=== PATIENT | male | born 1990 | race Two or more races ===

== ENCOUNTER 2018-10-10 11:55 | Emergency (ER) | payer OTHER ==
[2018-10-10 12:02] VITALS: BP 118/55; PULSE 77; TEMP 98.2; BMI 31.9
[2018-10-10] MEDS ORDERED: IBUPROFEN 400 MG TABLET (FP) PO ONE ×2 (12:33→12:39)
--- NOTE | 2018-10-10 12:39 | PDOC ---
History of Present Illness - General Chief Complaint: Injury Stated Complaint: RT HAND INJURY Time Seen by Provider: 10/10/18 12:03 History Source: Patient Exam Limitations: Clinical Condition - History of Present Illness Initial Comments: 10/10/18 12:41 Patient with no significant past medical history present with complaint of swelling and pain to back of right hand status post trip while going down staircase and falling on outstretched hand about 6 hours ago. Patient denies hitting head or loss of consciousness. Patient did not take anything for pain. Occurred: reports: this morning Past History - Past Medical History Allergies/Adverse Reactions: Allergies Allergy/AdvReac Type Severity Reaction Status Date / Time No Known Drug Allergies Allergy Verified 10/10/18 12:40 seafood Allergy Swelling Uncoded 10/10/18 12:01 Home Medications: Ambulatory Orders Oxycodone HCl/Acetaminophen [Percocet 5/325 -] 1 tab PO Q6H PRN #4 tablet Penicillin V Potassium [Pen Vee K -] 500 mg PO QID #28 tablet 04/28/15 Ibuprofen 800 mg PO Q8H PRN #20 tablet 10/10/18 COPD: No - Suicide/Smoking/Psychosocial Hx Smoking Status: No Smoking History: Never smoked Have you smoked in the past 12 months: Yes Number of Cigarettes Smoked Daily: 3 Information on smoking cessation initiated: No Hx Alcohol Use: No Drug/Substance Use Hx: No Substance Use Type: Alcohol Trauma Specific PMHX - Complaint Specific PMHX Arthritis: No Back Injury: No Neck Injury: No Hx Sacro Iliac Joint Dysfunction: No Review of Systems - Review of Systems Able to Perform ROS?: Yes Is the patient limited Sinhala proficient: No Constitutional: No: Weakness HEENTM: No: Symptoms Reported Respiratory: No: Symptoms reported Cardiac (ROS): No: Symptoms Reported ABD/GI: No: Symptoms Reported Musculoskeletal: Yes: Symptoms Reported, See HPI, Joint Swelling (right hand), Muscle Pain (right hand). No: Muscle Weakness Neurological: No: Numbness, Paresthesia, Tingling All Other Systems: Reviewed and Negative *Physical Exam - Vital Signs Last Vital Signs Temp Pulse Resp BP Pulse Ox 98.2 F 77 17 118/55 L 100 10/10/18 12:00 10/10/18 12:00 10/10/18 12:00 10/10/18 12:00 10/10/18 12:00 - Physical Exam Comments: 10/10/18 12:45 GENERAL: Well developed, well nourished. Awake and alert in moderate acute distress. CARDIOVASCULAR: Regular rate and rhythm. No murmurs, rubs, or gallops. PULMONARY: No evidence of respiratory distress. MUSCULOSKELETAL : moderate tenderness to dorsal aspect of right hand over third to fifth metatarsals with moderate swelling to dorsal aspect of right hand. No open wound to right hand. No pain to fingers, forearm or elbow.No bony deformities SKIN: Warm and dry. Normal capillary refill. No bruising or ecchymosis. Moderate swelling to dorsal aspect of right hand. NEUROLOGICAL: Alert, awake, appropriate. No motor deficits in the lower extremities. Gait is normal without ataxia. PSYCHIATRIC: Cooperative. Good eye contact. Appropriate mood and affect. General Appearance: Yes: Nourished, Appropriately Dressed, Apparent Distress, Moderate Distress Procedures - Splinting Splint Location: Right: Hand (ulnar gutter) Pre-Proc Neuro Vasc Exam: normal Pre-Made Type: aircast Hand-Made Type: orthoglass Splint Type: Yes: Ulnar (ulnar gutter splint to right hand) Post-Proc Neuro Vasc Exam: normal Darío Bandage: 4" Sling: Yes Complications: No Post splint xray: No Good repositioning: Yes ED Treatment Course - RADIOLOGY Radiology Studies Ordered: Category Date Time Status WRIST W/HAND-RIGHT* [RAD] Stat Radiology 10/10/18 12:04 Ordered Medical Decision Making - Medical Decision Making 10/10/18 12:42 Patient with no significant past medical history present with complaint of swelling and pain to back of right hand status post trip while going down staircase and falling on outstretched hand about 6 hours ago. Patient denies hitting head or loss of consciousness. Patient did not take anything for pain. Exam significant for moderate tenderness to dorsal aspect of right hand over third to fifth metatarsals with moderate swelling to dorsal aspect of right hand. No open wound to right hand. No pain to fingers, forearm or elbow. X-ray of right hand and wrist shows dorsally displaced fracture to shaft of 5th metatarsal of right hand. Patient placed in ulnar gutter splint in flexion. Sling given to support hand. Motrin 800 mg by mouth ordered for pain. Patient referred to follow-up with orthopedics for follow-up management of hand fracture. *DC/Admit/Observation/Transfer Diagnosis at time of Disposition: Closed right hand fracture Qualifiers: Encounter type: initial encounter Qualified Code(s): S62.91XA - Unspecified fracture of right wrist and hand, initial encounter for closed fracture Boxers fracture Qualifiers: Encounter type: initial encounter Fracture type: closed Qualified Code(s): S62.339A - Displaced fracture of neck of unspecified metacarpal bone, initial encounter for closed fracture - Discharge Dispostion Disposition: HOME Condition at time of disposition: Stable Decision to Admit order: No - Prescriptions Prescriptions: Ibuprofen 800 mg PO Q8H PRN #20 tablet PRN Reason: pain - Referrals Referrals: Efrain Huitron MD [Staff Physician] - - Patient Instructions Printed Discharge Instructions: DI for a Hand Fracture, Hand Fracture Additional Instructions: Take prescribed medication as needed for pain. Keep splint on hand until orthopedist follow-up. Follow-up referred orthopedics as soon as possible. - Post Discharge Activity Forms/Work/School Notes: Back to Work
== END 2018-10-10 12:48 | disposition home or self-care (01) ==
LOC: JERFT 11:55
PROC: 2W3CX1Z Immobilization of Right Lower Arm using Splint (ICD-10-PCS; principal; 2018-10-10)
DX: S62.326A Displaced fracture of shaft of fifth metacarpal bone, right hand, initial encounter for closed fracture (principal); W10.8XXA Fall (on) (from) other stairs and steps, initial encounter; Y93.89 Activity, other specified; Y92.89 Other specified places as the place of occurrence of the external cause; Y99.8 Other external cause status
CPT/HCPCS: 29126; 73110-TC-RT-FY; 73130-TC-RT-FY; 99281-25

== ENCOUNTER 2019-12-15 20:27 | Emergency (ER) | payer OTHER ==
[2019-12-15 20:31] VITALS: BP 129/85; PULSE 64; TEMP 97.3; BMI 29.8
[2019-12-15] MEDS ORDERED: LIDOCAINE PATCH REMOVAL MC SCH (22:00)
[2019-12-15] MEDS ORDERED: ALBUTEROL SO4 2.5/IPRATROPIUM 0.5 INH SOL 3 ML VIAL.NEB. NEB ONE ×2 (22:01→22:13)
[2019-12-15] MEDS ORDERED: DEXAMETHASONE LIQUID 0.5 MG/5 ML PO ONE (22:01)
[2019-12-15] MEDS ORDERED: LIDOCAINE 5% TOPICAL PATCH TP ONE (22:09)
[2019-12-15] MEDS ORDERED: LIDOCAINE 5% TOPICAL PATCH ONE (22:13)
[2019-12-15] MEDS ORDERED: DEXAMETHASONE SOD PHOSPHATE 10 MG/1 ML VIAL ONE (22:13)
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
== END 2019-12-15 22:54 | disposition home or self-care (01) ==
LOC: JER 20:27
PROC: 3E0F7GC Introduction of Other Therapeutic Substance into Respiratory Tract, Via Natural or Artificial Opening (ICD-10-PCS; principal; 2019-12-15)
DX: J45.909 Unspecified asthma, uncomplicated (principal); R07.89 Other chest pain
CPT/HCPCS: 99284-25

== ENCOUNTER 2022-04-02 22:49 | Emergency (ER) | payer OTHER ==
[2022-04-02 23:02] VITALS: BP 148/79; PULSE 81; RESP 19; TEMP 98.6; BMI 29.7
[2022-04-03] MEDS ORDERED: MAG HYDROX/AL HYDROX/SIMETH 30 ML UNIT-DOSE CUP PO ONE (00:05)
[2022-04-03] MEDS ORDERED: ONDANSETRON 4 MG/2 ML VIAL IVPUSH ONE ×2 (00:05→00:37)
[2022-04-03] MEDS ORDERED: SODIUM CHLORIDE 2,585 ML IV ONE (00:06)
[2022-04-03] MEDS ORDERED: FAMOTIDINE 20 MG/50 ML IVPB 20 MG/50 ML MG IVPB ONE ×2 (00:12→00:38)
[2022-04-03] MEDS ORDERED: ACETAMINOPHEN 1000 MG/100 ML BAG IVPB ONE (00:12)
[2022-04-03] MEDS ORDERED: SODIUM CHLORIDE 0.9% 500 ML INFUS.BAG IV ONE (00:12)
[2022-04-03] MEDS ORDERED: MAG HYDROX/AL HYDROX/SIMETH 30 ML UNIT-DOSE CUP ONE (00:34)
[2022-04-03] MEDS ORDERED: ONDANSETRON 4 MG/2 ML VIAL ONE (00:36)
[2022-04-03 01:23] LABS: BLOOD UREA NITROGEN 12.8 mg/dL (7-18); CALCIUM 9.5 mg/dL (8.5-10.1)
[2022-04-03 01:26] LABS: CREATININE 1.1 mg/dL (0.55-1.3)
[2022-04-03 01:28] LABS: BILIRUBIN,TOTAL 0.4 mg/dL (0.2-1); TOT PROT 7.2 g/dl (6.4-8.2)
== END 2022-04-03 02:34 | disposition home or self-care (01) ==
LOC: JER 22:49
PROC: 3E033GC Introduction of Other Therapeutic Substance into Peripheral Vein, Percutaneous Approach (ICD-10-PCS; principal; 2022-04-02)
DX: R10.10 Upper abdominal pain, unspecified (principal); R11.2 Nausea with vomiting, unspecified
CPT/HCPCS: 36415; 80053; 83690; 99284-25

== ENCOUNTER 2023-12-11 15:48 | Emergency (ER) | payer OTHER ==
[2023-12-11 15:59] VITALS: BMI 27.3
[2023-12-11] MEDS ORDERED: TETRACAINE 0.5% OPHTH SOLN 2 ML BOTTLE ONE (17:55)
[2023-12-11] MEDS: TETRACAINE 0.5% HCL 0.6ML DROPPER.BOTTLE OS ONE (18:03)
[2023-12-11] MEDS ORDERED: ACETAMINOPHEN 325 MG TABLET (FP) ONE (18:36)
[2023-12-11] MEDS ORDERED: DEXAMETHASONE SOD PHOSPHATE 10 MG/1 ML VIAL ONE (18:36)
[2023-12-11] MEDS ORDERED: PSEUDOEPHEDRINE HCL 60 MG TABLET ONE (18:46)
[2023-12-11] MEDS: PSEUDOEPHEDRINE HCL 60 MG TABLET PO ONE (18:51)
[2023-12-11] MEDS: SODIUM CHLORIDE 0.9% 500 ML INFUS.BAG IV ONE (18:51)
[2023-12-11] MEDS: DEXAMETHASONE SOD PHOSPHATE 10 MG/1 ML VIAL IVPUSH ONE (18:51)
[2023-12-11] MEDS: ACETAMINOPHEN 325 MG TABLET (FP) PO ONE (18:51)
[2023-12-11 18:56] LABS: BASO % 0.2 % (0-2.0); EOS % 3.3 % (0-4.5); HEMATOCRIT 42.6 % (35.4-49); HEMOGLOBIN 14.5 GM/dL (11.7-16.9); MCH 30.3 pg (25.7-33.7); MEAN CELL VOLUME 89.2 fl (80-96); MEAN PLT VOLUME 8.6 fl (7.5-11.1); MONO % 4.1 % (3.8-10.2); NEUT % 81.4 % (42.8-82.8); PLATELET COUNT 353 10^3/uL (134-434); RBC 4.78 M/mm3 (4.00-5.60); WHITE BLOOD COUNT 8.6 K/mm3 (4.0-10.0)
[2023-12-11 19:08] LABS: POTASSIUM 4.1 mmol/L (3.5-5.1)
[2023-12-11 19:10] LABS: CALCIUM 9.2 mg/dL (8.5-10.1)
[2023-12-11 19:11] LABS: BLOOD UREA NITROGEN 9.6 mg/dL (7-18)
[2023-12-11 19:15] LABS: BILIRUBIN,TOTAL 0.3 mg/dL (0.2-1); TOT PROT 7.2 g/dl (6.4-8.2)
[2023-12-11 20:04] LABS: HIV INTERPRETATION NEGATIVE (NEGATIVE)
[2023-12-11 21:07] VITALS: BP 127/67; PULSE 89; RESP 19; TEMP 99
== END 2023-12-11 21:11 | disposition home or self-care (01) ==
LOC: JER 15:48
PROC: 3E033GC Introduction of Other Therapeutic Substance into Peripheral Vein, Percutaneous Approach (ICD-10-PCS; principal; 2023-12-11)
DX: J01.90 Acute sinusitis, unspecified (principal); R51.9 Headache, unspecified; R09.81 Nasal congestion; R11.0 Nausea; Z20.822 Contact with and (suspected) exposure to COVID-19
CPT/HCPCS: 0241U-QW; 36415; 70450-TC; 70486-TC; 80053; 85025; 86803; 87389; 93005; 93010; 99285-25; J1100